=== PATIENT | male | born 1985 | race Caucasian/White ===

== ENCOUNTER 2018-02-12 14:10 | Emergency (ER) | payer SELFPAY ==
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
[2018-02-12 14:36] VITALS: BP 144/90
[2018-02-12] MEDS ORDERED: DIPH,PERTUSS(ACELL),TET VAC/PF 0.5 ML DISP.SYRIN IM ONE (15:11)
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
== END 2018-02-12 15:22 | disposition home or self-care (01) ==
LOC: ED 14:10
DX: S06.9X9A Unspecified intracranial injury with loss of consciousness of unspecified duration, initial encounter (principal); M54.2 Cervicalgia; Z04.71 Encounter for examination and observation following alleged adult physical abuse; Y04.0XXA Assault by unarmed brawl or fight, initial encounter; Y92.149 Unspecified place in prison as the place of occurrence of the external cause; Y93.9 Activity, unspecified; Y99.9 Unspecified external cause status
CPT/HCPCS: 70450; 72125; 90471; 90715; 99284

== ENCOUNTER 2018-12-20 13:13 | Emergency (ER) | payer OTHER ==
[2018-12-20 13:51] LABS: BASOPHILS % 0.3 % (0.0-1.5); NEUTROPHILS # 6.7 # k/uL (1.4-7.7)
[2018-12-20 14:01] LABS: eGFR (Non-African) > 60
[2018-12-20 14:06] VITALS: BP 152/84
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
== END 2018-12-20 14:01 | disposition home or self-care (01) ==
LOC: ED 13:13
DX: Z77.21 Contact with and (suspected) exposure to potentially hazardous body fluids (principal)
CPT/HCPCS: 80053; 85025; 86703; 86706; 86803; 99282

== ENCOUNTER 2019-01-10 11:13 | Outpatient (CLI) | payer OTHER | END 2019-01-10 11:15 | LOC: LAB 11:13 | PROVIDERS: ATTEND Family Medicine | DX: Z77.21 Contact with and (suspected) exposure to potentially hazardous body fluids (principal) | CPT/HCPCS: 36415; 86703 ==